=== PATIENT | male | born 1955 | race Caucasian/White ===

== ENCOUNTER 2017-06-04 10:49 | Outpatient (CLI) | payer OTHER ==
--- NOTE | 2017-06-05 09:57 | XRAY Report ---
DATE OF SERVICE: 06/04/2017 TWO VIEW CHEST: 06/04/2017 CLINICAL INDICATION: Cough. FINDINGS: Frontal and lateral views of the chest demonstrate a normal cardiac silhouette. The lungs are clear. No effusion or pneumothorax is present. IMPRESSION: NORMAL CHEST. TD: 06/05/2017 10:56
== END 2017-06-04 10:50 | disposition home or self-care (01) ==
LOC: DI.S 10:49
PROVIDERS: ATTEND Naturopath
DX: R05 Cough (principal)
CPT/HCPCS: 71046

== ENCOUNTER 2018-12-26 17:02 | Emergency (ER) | payer OTHER ==
[2018-12-26 17:20] VITALS: BP 158/78
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
[2018-12-26] MEDS ORDERED: TETANUS/DIPHTHERIA/PERTUSSIS 0.5 ML SYRINGE IM ONE (17:42)
[2018-12-26] MEDS ORDERED: IBUPROFEN 600 MG TABLET PO STA (17:43)
[2018-12-26] MEDS ORDERED: ACETAMINOPHEN 325 MG TABLET PO STA (17:43)
== END 2018-12-26 18:01 | disposition home or self-care (01) ==
LOC: ED 17:02
DX: S01.01XA Laceration without foreign body of scalp, initial encounter (principal); W22.8XXA Striking against or struck by other objects, initial encounter; Y93.89 Activity, other specified; Y92.009 Unspecified place in unspecified non-institutional (private) residence as the place of occurrence of the external cause; Z23 Encounter for immunization
CPT/HCPCS: 12001; 90471; 90715; 99283; 99284; A9270

== ENCOUNTER 2023-07-22 09:47 | Outpatient (CLI) | payer OTHER | END 2023-07-22 09:48 | disposition home or self-care (01) | LOC: LAB 09:47 | PROVIDERS: ATTEND Urology | DX: Z12.5 Encounter for screening for malignant neoplasm of prostate (principal) | CPT/HCPCS: 36415; 84153 ==

== ENCOUNTER 2023-08-28 14:49 | Emergency (ER) | payer OTHER ==
[2023-08-28 15:28] VITALS: O2SAT 99
--- NOTE | 2023-08-28 16:06 | XRAY Report ---
PROCEDURE: Chest 1V INDICATIONS: Chest pain TECHNIQUE: One view of the chest was acquired. COMPARISON: 06/04/2017. FINDINGS: Surgical changes and devices: None. Lungs and pleura: No pleural effusions or pneumothorax. Lungs are clear. Mediastinum: Mediastinal contours appear normal. Heart size is normal. Bones and chest wall: No suspicious bony lesions. Overlying soft tissues appear unremarkable. IMPRESSION: No acute cardiopulmonary process. Reviewed by: Linus Lopez MD on 08/28/2023 4:05 PM PDT Approved by: Linus Lopez MD on 08/28/2023 4:05 PM PDT Station ID: [id number]
--- NOTE | 2023-08-28 16:11 | ED Physician Documentation ---
History of Present Illness - Stated complaint Stated Complaint: HIGH BP,CHILLS,SHAKEY - Chief complaint Chief Complaint: Cardiac - History obtained from History obtained from: Patient - History of Present Illness Timing: How many weeks ago (1) Pain level max: 0 Pain level now: 0 - Additonal information Additional information: Patient is a 67-year-old male who presents to the emergency department stating that he has felt off balance for the past 1 week. He states that he is using objects to help him walk around the house. He states that if he is outside doing "work" he does not seem to notice the off-balance feeling as much. He states intermittently his blood pressure has been high as well, up to 199 s ystolic. He states today that he had chills. No chest pain. No shortness of breath. No headache. No head injury. No fever. No cough, congestion. No abdominal pain. No neck pain. No weakness or numbness. No vision changes. No facial droop. No focal weakness. Review of Systems Constitutional: denies: Fever, Chills, Myalgias Respiratory: denies: Cough GI: denies: Nausea, Vomiting, Diarrhea Skin: denies: Rash Musculoskeletal: denies: Neck pain, Back pain Neurologic: denies: Headache PD PAST MEDICAL HISTORY - Past Medical History Cardiovascular: None Respiratory: None Neuro: None Endocrine/Autoimmune: None Other Past Medical History: vertigo - Past Surgical History Past Surgical History: No - Present Medications Home Medications: Ambulatory Orders Medication Instructions Recorded Confirmed No Known Home Medications 12/26/18 08/28/23 - Allergies Allergies/Adverse Reactions: Allergies Allergy/AdvReac Type Severity Reaction Status Date / Time No Known Drug Allergies Allergy Verified 08/28/23 15:20 - Social History Does the pt smoke?: No Smoking Status: Never smoker Does the pt drink ETOH?: Yes Does the pt have substance abuse?: No - Immunizations Immunizations are current?: No Immunizations: TDAP >10years/unknown PD ED PE NORMAL - Vitals Vital signs reviewed: Yes - General General: Alert and oriented X 3, No acute distress, Well developed/nourished - HEENT HEENT: Atraumatic, PERRL, EOMI, Ears normal, Moist mucous membranes, Pharynx benign - Neck Neck: Supple, no meningeal sign, No bony TTP - Cardiac Cardiac: RRR, Strong equal pulses - Respiratory Respiratory: No respiratory distress, Clear bilaterally - Abdomen Abdomen: Soft, Non tender, Non distended - Back Back: No spinal TTP - Derm Derm: Warm and dry - Extremities Extremities: No edema, No calf tenderness / cord - Neuro Neuro: Alert and oriented X 3, 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 Normal [id number]. Normal [id number]. Normal gait. No nystagmus. Results - Vitals Vitals: Vital Signs - 24 hr 08/28/23 08/28/23 15:12 19:05 Temperature 36.3 C L 36.5 C Heart Rate 60 61 Respiratory 18 16 Rate Blood Pressure 163/77 H 168/98 H O2 Saturation 99 99 Oxygen O2 Source Room air - EKG (time done) 1552 EKG releavant findings:: EKG personally interpreted by author of this note. Relevant findings are: Rate: Rate (enter#) (56) Rhythm: NSR [place]: Normal Intervals: Normal [place] QRS: Normal Ischemia: Normal ST segments - Labs Labs: Laboratory Tests 08/28/23 08/28/23 16:15 16:15 WBC 4.9 RBC 4.63 L Hgb 14.4 Hct 42.6 MCV 92.0 MCH 31.1 H MCHC 33.8 RDW 13.6 Plt Count 252 MPV 9.6 Neut # (Auto) 3.3 Lymph # (Auto) 1.0 L [place] # (Auto) 0.4 Eos # (Auto) 0.1 Baso # (Auto) 0.1 Absolute Nucleated RBC 0.00 Nucleated RBC % 0.0 Sodium 139 Potassium 3.9 Chloride 105 Carbon Dioxide 28 Anion Gap 6.0 BUN 14 Creatinine 1.0 Estimated GFR (MDRD) 74 L Glucose 103 Calcium 9.5 Total Bilirubin 0.8 AST 11 ALT 16 Alkaline Phosphatase 56 Troponin I High Sens < 2.3 L Total Protein 6.8 Albumin 4.4 Globulin 2.4 Albumin/Globulin Ratio 1.8 Lipase 26 - Rads (name of study) Chest x-ray Relevant Findings:: Final report received, See rad report Head CT Relevant Findings:: Final report received, See rad report Brain MRI Relevant Findings:: Final report received, See rad report PD Medical Decision Making - ED course Complexity details: reviewed results, re-evaluated patient, considered differential, d/w patient, d/w family ED course: No acute findings on laboratory testing, EKG, chest x-ray, head CT, brain MRI. No neurological deficits here. Unclear etiology of his symptoms earlier today and feelings of off balance over the past week. Recommend he follow-up with his doctor for further care and further testing. Ambulating without difficulty here. No evidence of stroke, tumor, mass. Patient will follow-up with his doctor regarding his elevated blood pressure readings. Patient counseled regarding signs and symptoms for which I believe and urgent re-evaluation would be necessary. Patient with good understanding of and agreement to plan and is comfortable going home at this time This document was made in part using voice recognition software. While efforts are made to proofread this document, sound alike and grammatical errors may occur. Departure - Departure Disposition: 01 Home, Self Care Clinical Impression: Dizzy Hypertension Qualifiers: Hypertension type: unspecified Qualified Code(s): I10 - Essential (primary) hypertension Condition: Good Instructions: ED Dizziness [facility] Follow-Up: Your,doctor in 1 week [Other] Comments: Your EKG, laboratory testing, head CT, chest x-ray, EKG and MRI do not show any acute abnormalities today. The cause of your symptoms is unclear. Please follow-up with your doctor for further care. Please return if you worsen. PROCEDURE: Brain WO INDICATIONS: dizziness TECHNIQUE: Noncontrast axial T1 spin echo, axial T2 fast spin echo, sagittal and axial FLAIR, coronal T2 fast spin echo, axial gradient echo, axial diffusion and ADC through the brain. COMPARISON: None. FINDINGS: Image quality: Excellent. CSF Spaces: Basal cisterns are patent. No extra-axial fluid collections. Ventricles are normal in size and shape. Brain: No intracranial masses or hemorrhage. Holman/white matter interface is normal. Brainstem appears normal. Diffusion-weighted images demonstrate no acute ischemic insult. No chronic ischemic insults. Normal intravascular flow voids are present. In this patient with this given history, scrutiny is given to the cerebellopontine angle cisterns and to the internal auditory canals. To the limits of this standard protocol study, no masses can be seen within these regions. Skull and face: Calvarium has normal marrow signal. Orbits appear normal. Sinuses: Sinuses and mastoids are clear. IMPRESSION: No findings of acute or subacute infarction are seen. To the limits of this standard protocol study performed without IV contrast, no cause of dizziness can be seen. PROCEDURE: Head WO INDICATIONS: dizziness x 1 week TECHNIQUE: Noncontrast 4.5 mm thick angled axial sections acquired from the foramen magnum to the vertex. For radiation dose reduction, the following was used: automated exposure control, a djustment of mA and/or kV according to patient size. COMPARISON: Correlation is made with the accompanying imaging. FINDINGS: Image quality: Excellent. CSF spaces: Basal cisterns are patent. No extra-axial fluid collections. Ventricles are normal in size and shape. Brain: No midline shift. No intracranial masses or hemorrhage. Holman-white matter interface is normal. Skull and face: Calvarium and visualized facial bones are intact, without suspicious lesions. Sinuses: Visualized sinuses and mastoids are clear. IMPRESSION: Noncontrast head CT within normal limits for age, without a cause of dizziness identified. Forms: PCP List Discharge Date/Time: 08/28/23 19:40
[2023-08-28 16:18] LABS: BASOPHILS # (AUTO) 0.1 10^3/uL (0.0-0.1); BASOPHILS % (AUTO) 1.2 %; EOSINOPHILS # (AUTO) 0.1 10^3/uL (0.0-0.7); EOSINOPHILS % (AUTO) 2.1 %; HCT - HEMATOCRIT 42.6 % (42.0-52.0); HGB - HEMOGLOBIN 14.4 g/dL (14.0-18.0); LYMPHOCYTES % (AUTO) 19.7 %; MEAN CORPUSCULAR HEMOGLOBIN 31.1 pg (27.0-31.0); MEAN CORPUSCULAR HGB CONC 33.8 g/dL (32.0-36.0); MEAN PLATELET VOLUME 9.6 fL (7.4-11.4); MONOCYTES # (AUTO) 0.4 10^3/uL (0.0-1.0); MONOCYTES % (AUTO) 8.4 %; NEUTROPHILS # (AUTO) 3.3 10^3/uL (1.5-6.6); NEUTROPHILS % (AUTO) 68.4 %; PLT - PLATELET COUNT 252 10^3/uL (130-450); RED BLOOD COUNT 4.63 10^6/uL (4.70-6.10); RED CELL DISTRIBUTION WIDTH 13.6 % (12.0-15.0); WHITE BLOOD COUNT 4.9 x10^3/uL (4.8-10.8)
[2023-08-28 16:34] LABS: ALBUMIN 4.4 g/dL (3.2-5.5); ALBUMIN/GLOBULIN RATIO 1.8 (1.0-2.2); ALKALINE PHOSPHATASE 56 IU/L (42-121); ALT ALANINE AMINOTRANSFERASE 16 IU/L (10-60); AST ASPARTATE AMINOTRANSFERASE 11 IU/L (10-42); BILIRUBIN,TOTAL 0.8 mg/dL (0.2-1.0); BUN - BLOOD UREA NITROGEN 14 mg/dL (6-20); CALCIUM 9.5 mg/dL (8.5-10.3); CARBON DIOXIDE - CO2 28 mmol/L (21-32); CHLORIDE 105 mmol/L (101-111); GFR - MDRD 74 (>89); GLUCOSE 103 mg/dL (74-104); LIPASE 26 U/L (11-82); POTASSIUM 3.9 mmol/L (3.5-4.5); SODIUM 139 mmol/L (135-145); TOTAL PROTEIN 6.8 g/dL (6.4-8.9)
[2023-08-28 16:39] LABS: TROPONIN I HIGH SENSITIVITY < 2.3 ng/L (2.3-19.7)
--- NOTE | 2023-08-28 18:05 | CT Report ---
PROCEDURE: Head WO INDICATIONS: dizziness x 1 week TECHNIQUE: Noncontrast 4.5 mm thick angled axial sections acquired from the foramen magnum to the vertex. For r adiation dose reduction, the following was used: automated exposure control, adjustment of mA and/or kV according to patient size. COMPARISON: Correlation is made with the accompanying imaging. FINDINGS: Image quality: Excellent. CSF spaces: Basal cisterns are patent. No extra-axial fluid collections. Ventricles are normal in size and shape. Brain: No midline shift. No intracranial masses or hemorrhage. Holman-white matter interface is norm al. Skull and face: Calvarium and visualized facial bones are intact, without suspicious lesions. Sinuses: Visualized sinuses and mastoids are clear. IMPRESSION: Noncontrast head CT within normal limits for age, without a cause of dizziness identified. If there is strong clinical concern for a stroke, please consider a dedicated brain MRI for further e valuation (assuming that there is no contraindication to MRI). Reviewed by: Rob Hart MD on 08/28/2023 5:03 PM MANASA Approved by: Rob Hart MD on 08/28/2023 5:03 PM MANASA Station ID: [id number]
--- NOTE | 2023-08-28 19:04 | MRI Report ---
PROCEDURE: Brain WO INDICATIONS: dizziness TECHNIQUE: Noncontrast axial T1 spin echo, axial T2 fast spin echo, sagittal and axial FLAIR, coronal T2 fast sp in echo, axial gradient echo, axial diffusion and ADC through the brain. COMPARISON: None. FINDINGS: Image quality: Excellent. CSF Spaces: Basal cisterns are patent. No extra-axial fluid collections. Ventricles are normal in size and shape. Brain: No intracranial masses or hemorrhage. Holman/white matter interface is normal. Brainstem appe ars normal. Diffusion-weighted images demonstrate no acute ischemic insult. No chronic ischemic ins ults. Normal intravascular flow voids are present. In this patient with this given history, scrutin y is given to the cerebellopontine angle cisterns and to the internal auditory canals. To the limits of this standard protocol study, no masses can be seen within these regions. Skull and face: Calvarium has normal marrow signal. Orbits appear normal. Sinuses: Sinuses and mastoids are clear. IMPRESSION: No findings of acute or subacute infarction are seen. To the limits of this standard protocol study performed without IV contrast, no cause of dizziness ca n be seen. Reviewed by: Rob Hart MD on 08/28/2023 6:02 PM [facility] Approved by: Rob Hart MD on 08/28/2023 6:02 PM MANA[facility] Station ID: [id number]
[2023-08-28 19:11] VITALS: BP 168/98
== END 2023-08-28 19:40 | disposition home or self-care (01) ==
LOC: ED 14:49
DX: R42 Dizziness and giddiness (principal); I10 Essential (primary) hypertension
CPT/HCPCS: 36415; 80053; 83690; 84484; 85025; 93005; 99284